=== PATIENT | female | born 1960 | race Caucasian/White ===

== ENCOUNTER 2017-02-22 10:59 | Outpatient (CLI) | payer OTHER, MEDICARE ==
[~2017-02-22] VITALS: Ht 170.2 cm; Wt 72.7 kg
--- NOTE | ~2017-02-22 | OP ---
PATIENT NAME: VIGNESH RODRIGUEZ MEDICAL RECORD: [id number] :58 LOCATION:D.CAT ADMISSION DATE: SURGEON: HOOD CARNES MD DATE OF OPERATION: 02/22/2017 PROCEDURE: Left heart catheterization, selective coronary angiography, right radial approach. CATHETERS: Radial sheath, JL3.5 AR mod catheter. The procedure was tolerated and she returned to the brown. Sheath was removed. TR band was placed. FINDINGS: Left ventriculography in 30-degree MANNING view: Normal wall motion. Normal systolic function. CORONARY ANATOMY. LEFT MAIN: Left main is free of disease. LAD: Free in the diagonal system. CIRCUMFLEX: Large circumflex system. This is a left dominant system, free of disease. RIGHT CORONARY ARTERY: Rudimentary, free of disease. IMPRESSION: Normal systolic function. Normal coronary anatomy. TRANSINT:[id number] Voice Confirmation ID: [id number] DOCUMENT ID: [id number] HOOD CARNES MD at 1337 CC: [id number] DICTATION DATE: 02/22/17 1447 [employer] MANAGER: 02/22/17 1631 DEP CLI 02/22/17 [facility] [address] [place] [address]
--- NOTE | ~2017-02-22 | HEMODYNAMI ---
PATIENT:VIGNESH RODRIGUEZ MEDICAL RECORD: [id number] : 58 LOCATION:[facility] ADMISSION DATE: 02/22/17 Generatedon:02/22/201714:43 Patient name: VIGNESH RODRIGUEZ Patient #: [id number] SSN: : 1960 Date of study: 02/22/2017 Page: Of Hemodynamic Procedure Report Patient Data Patient Demographics Procedure consent was obtained First Name: VIGNESH Gender: Female Last Name: MICHAEL : 1960 Middle Initial: KATHY Age: 56 year(s) Patient #: [id number] Race: Unknown Additional ID: [id number] Contact details [address]: [address] [place] [address] DRIVE State: [place] City: [place] Zip code: [address] Admission Admission Data Admission Date: 02/22/2017 Admission Time: 10:59 Admit Source: Other Procedure Procedure Types Cath Procedure Diagnostic Procedure LHC LHC w/Coronaries Miscellaneous Procedures Moderate Sedation up to 15 minutes Procedure Description Procedure Date Procedure Date: 02/22/2017 Procedure Start Time: 14:22 Procedure End Time: 14:41 Procedure Staff Name Function Josiah Chery RT Monitor Carl Allan RT Scrub Sean Stoner RN Nurse Andre Lunsford MD Performing Physician Procedure Data Cath Procedure Fluoroscopy Diagnostic fluoroscopy Total fluoroscopy Time: 3.8 time: 3.8 min min Diagnostic fluoroscopy Total fluoroscopy dose: 428 dose: 428 mGy mGy Contrast Material Contrast Material Type Amount (ml) Isovue 300 67 Entry Location Entry Primary Successful Side Size Upsize Upsize Entry Closure Mays ccessful Closure Location (Fr) 1 (Fr) 2 (Fr) Remarks Device Remarks Radial Right 6 Fr Mechanical artery Short Compression Estimated blood loss: 10 ml Diagnostic catheters Device Type Used For End Catheter Placement DIAGNOSTIC Fielding 110cm 5 Procedure Fr catheter ([id number]) DIAGNOSTIC AR 1 MOD 5Fr Procedure catheter ([id number]) DIAGNOSTIC JL 3.5 5Fr Procedure catheter ([id number]) Procedure Complications No complications Procedure Medications Medication Administration Route Dosage 0.9% NaCl I.V. 100 ml/hr Oxygen NC 2 l/min Heparin Flush Bag added to field 2 bags (1000units/500ml NS) Lidocaine 2% added to field 20 Radial Cocktail added to field 1 syringe (Verapomil 2mg/Nitro 400mcg/Heparin 1500units) Versed I.V. 2 mg Fentanyl I.V. 100 mcg Versed I.V. 1 mg Radial Cocktail I.A. 1 syringe (Verapomil 2mg/Nitro 400mcg/Heparin 1500units) Versed I.V. 1 mg Hemodynamics Rest Heart Rate: 71 (bpm) Pressure Samples Time Site Value (mmHg) Purpose Heart Use Rate(bpm) 14:27 LV 114/-3,3 Snapshot 93 14:27 AO 111/62(87) Pullback 93 14:34 AO 118/63(86) Snapshot 71 Gradients Valve Time Site Site 2 Mean SEP/DFP Peak To Heart Use 1 (mmHg) (sec/min) Peak Rate (mmHg) (bpm) Aortic 14:27 LV AO 93 111/62(87) Snapshots Pre Cath Intra NCS Post Cath Vital Signs Time Heart Resp SPO2 etCO2 NIBP (mmHg) Rhythm Pain Sedation Rate (ipm) (%) (mmHg) Status Level (bpm) 13:46:57 69 19 100 36.6 132/71(101) NSR 0 (11) 10(A) , No pain 13:51:40 68 23 96 37.4 131/59(97) NSR 0 (11) 10(A) , No pain 13:56:20 67 13 97 39.6 131/66(95) NSR 0 (11) 10(A) , No pain 14:01:01 62 14 97 40.4 127/63(89) NSR 0 (11) 10(A) , No pain 14:05:42 66 15 97 40.3 131/60(98) NSR 0 (11) 10(A) , No pain 14:10:22 66 16 97 32.8 129/67(95) NSR 0 (11) 10(A) , No pain 14:15:04 62 14 96 36.6 125/62(86) NSR 0 (11) 10(A) , No pain 14:19:42 59 19 94 41.1 121/60(85) NSR 0 (11) 9(A) , No pain 14:24:21 63 15 96 37.3 121/61(92) NSR 0 (11) 9(A) , No pain 14:29:02 66 14 92 26.1 111/49(78) NSR 0 (11) 9(A) , No pain 14:33:40 68 15 94 38.8 117/56(87) NSR 0 (11) 10(A) , No pain 14:38:19 69 26 95 38 126/62(89) NSR 0 (11) 9(A) , No pain Medications Time Medication Route Dose Verified Delivered Reason Notes Effectiveness by by 13:46:05 0.9% NaCl I.V. 100 Sean Sean Per ml/hr Georgiana Stoner physician RN RN 13:46:16 Oxygen NC 2 l/min Sean Sean Per Georgiana Stoner physician YUN RN 13:46:30 Heparin Flush added 2 bags Sean Sean used for Bag to Georgiana Stoner procedure (1000units/500ml field YUN MALCOLM NS) 13:46:43 Lidocaine 2% added 20ml Sean Sean for local to vial Lorigan Georgiana anesthetic field YUN MALCOLM 13:46:53 Radial Cocktail added 1 Sean Sean used for (Verapomil to syringe Lorigan Lorigan procedure 2mg/Nitro field YUN MALCOLM 400mcg/Heparin 1500units) 14:13:01 Versed I.V. 2 mg Sean Sean for sedation Georgiana Stoner RN, RN 14:13:12 Fentanyl I.V. 100 mcg Sean Sean for sedation Georgiana Stoner RN, RN 14:23:23 Versed I.V. 1 mg Sean Sean for sedation Georgiana Stoner RN RN 14:26:11 Radial Cocktail I.A. 1 Sean Andre for (Verapomil syringe Lorigan Ballico vasodilation 2mg/Nitro YUN MENDIETA 400mcg/Heparin 1500units) 14:37:22 Versed I.V. 1 mg Sean Sean for sedation Georgiana Stoner RN concrete pointer Log Time Note 13:12:28 Informed consent obtained and on chart 13:13:22 Admit Source: Other 13:13:58 Diagnostic Cath status Elective 13:14:31 Time tracking: Regular hours 13:14:35 Plan of Care:Hemodynamics will remain stable., Cardiac rhythm will remain stable., Comfort level will be maintained., Respiratory function will remain adequate., Patient/ family verbilizes understanding of procedure., Procedure tolerated without complication., Recovers from procedure without complications.. 13:22:32 H&P Date Dictated: 02/10/2017 Within 30 days and on chart., H&P Addendum completed by physician on day of procedure. (MUST COMPLETE FOR ALL OUTPATIENTS). 13:24:48 Josiah DUARTE(R) sent for patient. Start room use. 13:31:49 Patient received from Pre/Post Procedure Room to CCL 1 Alert and oriented. Tansferred to table in Supine position. 13:31:50 Warm blankets applied, and sarmad hugger turned on for patient comfort. 13:31:50 Correct patient and procedure confirmed by team. 13:31:51 ECG and BP/O2 sat monitors applied to patient. 13:31:52 Pre-procedure instructions explained to patient. 13:31:53 Pre-op teaching completed and patient verbalized understanding. 13:31:54 Family in waiting room. 13:31:57 Patient NPO since Breakfast. 13:46:05 0.9% NaCl 100 ml/hr I.V. was administered by Sean Stoner RN; Per physician; 13:46:06 Vital chart was started 13:46:07 Baseline sample Acquired. 13:46:11 Rhythm: sinus rhythm 13:46:12 Full Disclosure recording started 13:46:16 Oxygen 2 l/min NC was administered by Sean Stoner RN; Per physician; 13:46:16 Is the patient allergic to Iodine/contrast media? No. 13:46:19 Is patient on blood thinner?No 13:46:29 Patient diabetic? No. 13:46:30 Heparin Flush Bag (1000units/500ml NS) 2 bags added to field was administered by Sean Stoner RN; used for procedure; 13:46:32 Patient not . Patient is over age 55. 13:46:34 Previous problem with sedation/anesthesia? No ? 13:46:35 Snore? Yes 13:46:37 Sleep apnea? Yes 13:46:38 Deviated septum? No 13:46:39 Opens mouth fully? Yes 13:46:40 Sticks out tongue? Yes 13:46:42 Airway obstruction? No ? 13:46:43 Lidocaine 2% 20ml vial added to field was administered by Sean Stoner RN; for local anesthetic; 13:46:43 Dentures? No ? 13:46:46 Pre procedure: right dorsailis pedis pulse 1+ Palpable, but thready & weak; easily obliterated 13:46:49 Modified Vinicio's test Ulnar < 7 seconds 13:46:50 Patient pain scale 0/10 ?. 13:46:53 Radial Cocktail (Verapomil 2mg/Nitro 400mcg/Heparin 1500units) 1 syringe added to field was administered by Sean Stoner RN; used for procedure; 13:46:55 IV patent on arrival in left forearm with 0.9% NaCl at [facility]. 13:46:57 Lab results completed and on chart. 13:46:59 Right Radial & Right Groin area was prepped with chlora-prep and draped in sterile fashion 13:47:01 Alarms reviewed by R. N. 13:47:02 Sharps counted by scrub and verified by R.N. 13:47:09 Use device set Radial Dx or PCI 13:47:14 Tegaderm 4 x 4 (1626W) opened to sterile field. 13:47:15 ACIST Manifold (04108) opened to sterile field. 13:47:16 ACIST Hand Control (07594) opened to sterile field. 13:47:17 ACIST Syringe (47784) opened to sterile field. 13:47:17 Medline Cath Pack ([id number]) opened to sterile field. 13:47:18 Bag Decanter (2001S) opened to sterile field. 13:47:18 SHEATH 6FR Slender ([id number]) opened to sterile field. 13:47:19 DIAGNOSTIC WIRE .035 260cm J wire (603213) opened to sterile field. 13:47:19 MBrace Wrist Support ([id number]) opened to sterile field. 14:02:43 Case delayed due to Physician working in 3. 14:10:55 --------ALL STOP TIME OUT------ 14:10:57 Final Timeout: patient, procedure, and site verified with staff and physician. All members of the team are in agreement. 14:11:01 Right Radial & Right Groin site verified by team. 14:11:04 Physical assessment completed. ASA score P 2 - A patient with mild systemic disease as per Andre Lunsford MD. 14:11:45 Sedation plan: IV Moderate Sedation Medication:Versed, Fentanyl 14:13:01 Versed 2 mg I.V. was administered by Sean Stoner RN; for sedation; 14:13:12 Fentanyl 100 mcg I.V. was administered by Sean Stoner RN; for sedation; 14:13:17 Zero performed for pressure channel P1 14:22:05 Procedure started. 14:22:12 Local anesthetic to right radial artery with Lidocaine 2% by Andre Lunsford MD.INITIAL ACCESS ONLY 14:23:23 Versed 1 mg I.V. was administered by Sean Stoner RN; for sedation; 14:26:11 Radial Cocktail (Verapomil 2mg/Nitro 400mcg/Heparin 1500units) 1 syringe I.A. was administered by Andre Lunsford MD; for vasodilation; 14:26:18 A 6 Fr Short sheath was inserted into the Right Radial artery 14:26:37 A DIAGNOSTIC Fielding 110cm 5 Fr catheter (270599) was advanced over the wire and used for Procedure. 14:27:38 LV angiography performed. 14:27:40 LV gram done using MANNING 14:27:46 EF : 55 % 14:27:55 LV hemodynamics recorded. 14:27:59 Injector settings: Ml/sec: 7, Volume: 15, 14:29:51 Catheter exchanged over wire. 14:30:18 A DIAGNOSTIC AR 1 MOD 5Fr catheter ([id number]) was advanced over the wire and used for Procedure. 14:31:33 RCA angiography performed. 14:32:40 Catheter exchanged over wire. 14:33:40 A DIAGNOSTIC JL 3.5 5Fr catheter ([id number]) was advanced over the wire and used for Procedure. 14:35:20 LCA angiography performed. 14:35:32 Catheter removed. 14:35:41 TR BAND Standard ([id number]) opened to sterile field. 14:36:26 Sheath removed intact; hemostasis achieved with Mechanical Compression to the Right Radial artery. 14:36:29 Procedure ended.(Physican Out) 14:37:22 Versed 1 mg I.V. was administered by Sean Stoner RN; for sedation; 14:37:45 Fluoroscopy time 03.80 minutes. 14:37:51 Fluoroscopy dose: 428 mGy 14:37:51 Flurop Dose total: 428 14:38:54 Contrast amount:Isovue 300 67ml. 14:39:06 Sharps counted by scrub and verified by R.N. 14:39:10 TR band inflated with 12cc of air. 14:39:11 Insertion/operative site no bleeding no hematoma. 14:39:15 Post Procedure Pulses reassessed and unchanged 14:39:18 Post-procedure physical assessment completed. ASA score P 2 - A patient with mild systemic disease as per Andre Lunsford MD. 14:39:21 Post procedure rhythm: unchanged. 14:39:24 Estimated blood loss: 10 ml 14:39:30 Post procedure instruction explained to patient.Patient verbalizes understanding. 14:39:30 Patient needs reinforcement of post procedure teaching. 14:40:31 Procedure type changed to Cath procedure, Diagnostic procedure, LHC, LHC w/Coronaries, Miscellaneous Procedures, Moderate Sedation up to 15 minutes 14:40:33 Procedure and supply charges have been captured, reviewed, submitted and are correct. 14:40:36 Procedure Complication : No complications 14:41:18 See physician's report for complete and final results. 14:41:18 Vital chart was stopped 14:41:20 Report given to Pre/Post Procedure Room. 14:41:23 Patient transfered to Pre/Post Procedure Room with Stretcher. 14:41:26 Procedure ended. 14:41:26 Full Disclosure recording stopped 14:41:39 End room use (Document Last) Device Usage Item Name Manufacture Quantity Catalog Hospital Part Current Minima l Lot# / Number Charge Number Stock Stock Serial# Code Tegaderm 4 x 3M 1 1626W 338231 298056 113367 5 4 (1626W) ACIST Acist 1 45071 415475 367701 063056 5 Manifold Medical (50387) Systems Inc ACIST Hand Acist 1 26735 355837 000891 693334 5 Control Medical (45565) Systems Inc ACIST Acist 1 67278 424470 130699 084159 20 Syringe Medical (01866) Systems Inc Medline Cath Cardinal 1 [id number] 097686 42547 800073 5 Pack Campanisto ([id number]) Bag Decanter Microtek 1 528168 98876 408694 5 (2002S) Medical Inc. SHEATH 6FR Terumo 1 [id number] 244888 687066 262046 40 Slender ([id number]) DIAGNOSTIC [facility] [place] 1 193108 724110 857859 981893 30 WIRE .035 260cm J wire (305683) MBrace Wrist Advanced 1 140-0250-00 838821 09115 970287 5 Support Vascular ([id number]) Dynamics DIAGNOSTIC Terumo 1 40-5013 610721 383694 064733 5 Fielding 110cm 5 Fr catheter (895042) DIAGNOSTIC Cardinal 1 [id number] 237737 217824 899604 15 AR 1 MOD 5Fr Health catheter (081660C) DIAGNOSTIC Cardinal 1 [id number] 783031 437014 657090 5 JL 3.5 5Fr Health catheter (002508G) TR BAND Terumo 1 [id number] 758110 100407 413740 40 Standard ([id number]) Signature Audit [place] Stage Time Signature Unsigned Intra-Procedure 02/22/2017 Josiah Chery 2:43:22 PM RT(R) Signatures Monitor : Josiah Chery RT Signature : Date : Time : [address] [address]
[2017-02-22] MEDS ORDERED: LYRICA150 MG PO (11:23)
[2017-02-22] MEDS ORDERED: PAMELOR75 MG PO (11:23)
[2017-02-22] MEDS ORDERED: ESTRACE2 MG PO (11:24)
[2017-02-22] MEDS ORDERED: ZEBETA5 MG (11:24)
[2017-02-22] MEDS ORDERED: TRIAMTERENE-HCT1 TA1 PO (11:25)
[2017-02-22] MEDS ORDERED: LINZESS290 MCG PO (11:25)
[2017-02-22] MEDS ORDERED: BONTRIL SLOW-R105 MG PO (11:26)
[2017-02-22] MEDS ORDERED: OMEPRAZOLE20 M1 PO (11:26)
[2017-02-22] MEDS ORDERED: CLARITIN 10 MG10 MG PO (11:26)
[2017-02-22] MEDS ORDERED: ECOTRIN325 MG PO (11:26)
[2017-02-22] MEDS ORDERED: OMEGA-3100 MG PO (11:27)
[2017-02-22] MEDS ORDERED: CO Q-10100 MG PO (11:27)
[2017-02-22] MEDS ORDERED: MELATONIN 3 MG1 TAB PO (11:28)
[2017-02-22] MEDS ORDERED: VITAMIN B-122500 MCG PO (11:28)
[2017-02-22 11:30] VITALS: BP 133/62; Ht 170.2 cm; Wt 72.7 kg
[2017-02-22 11:44] LABS: BASOPHILS 0.9 % (0-2); EOSINOPHILS 3.5 % (0-7); HEMOGLOBIN 14.1 g/dL (12-16); LYMPHOCYTES 39.6 % (15-50); MCH 30.5 pg (26.0-34.0); MCHC 33.6 g/dL (31.0-37.0); MCV 90.9 fL (80.0-100.0); MEAN PLATELET VOLUME 9.6 fL (7.4-10.4); MONOCYTES 8.8 % (2-11); NEUTROPHILS 47.2 % (40-80); PLATELET COUNT 222 10x3/uL (130-400); RBC 4.62 10x6/uL (4.00-5.40); RDW 12.2 % (11.5-14.5); WBC 5.4 10x3/uL (4.8-10.8)
[2017-02-22 11:55] LABS: ANION GAP 12.1 mmol/L (8-16); CALCIUM 9.3 mg/dL (8.5-10.1); CARBON DIOXIDE 26.7 mmol/L (21.0-32.0); POTASSIUM - SERUM 3.8 mmol/L (3.5-5.1)
== END 2017-02-22 17:12 | disposition home or self-care (01) ==
LOC: D.CATH 10:59
PROVIDERS: Internal Medicine Interventional Cardiology
DX: I20.9 Angina pectoris, unspecified (principal); I10 Essential (primary) hypertension; I49.9 Cardiac arrhythmia, unspecified; E78.5 Hyperlipidemia, unspecified; Z01.812 Encounter for preprocedural laboratory examination

== ENCOUNTER → 2018-06-14 09:15 | Outpatient (CLI) | payer OTHER, MEDICARE ==
[2017-02-22 11:30] VITALS: BMI 25.1
[~2018-06-14 09:15] MED LIST: BONTRIL SLOW-R105 MG PO; CLARITIN 10 MG10 MG PO; CO Q-10100 MG PO; ECOTRIN325 MG PO; ESTRACE2 MG PO; LINZESS290 MCG PO; LYRICA150 MG PO; MELATONIN 3 MG1 TAB PO; OMEGA-3100 MG PO; OMEPRAZOLE20 M1 PO; PAMELOR75 MG PO; TRIAMTERENE-HCT1 TA1 PO; VITAMIN B-122500 MCG PO; ZEBETA5 MG
--- NOTE | 2018-06-18 13:02 | EC ---
PATIENT:VIGNESH RODRIGUEZ DATE OF SERVICE: 06/14/18 SEX: F MEDICAL RECORD: [id number] DATE OF : 58 [facility] AGE OF PATIENT: 57 ADMISSION DATE: 06/14/18 REFERRING PHYSICIAN: INTERPRETING PHYSICIAN: HOOD CARNES MD ECHOCARDIOGRAM REPORT ECHO CHARGES 4 ECHO COMPLETE Date: 06/14/18 CLINICAL DIAGNOSIS: PALPITATIONS/PVC'S/CP H/O HTN ECHOCARDIOGRAPHIC MEASUREMENTS (adult normal given) AC root (d.<3.7cm) 2.9 cm LV Septum d (<1.2 cm> 1.0 cm Valve Excursion 1.9 cm LV Septum (systole) 1.8 cm Left Atria (s.<4.0cm> 3.1 cm LVPW d(<1.2cm) 1.1 cm RV (d.<2.3cm) 2.1 cm LVPW (sytole) 1.8 cm LV diastole(<5.6CM) 4.5 cm MV E-F(>70mm/sec) cm LV systole 2.2 cm LVOT Diameter 1.8 cm MV exc.(>10mm) cm Est.ejection fraction (50-75%) % DOPPLER: LVIT cm/sec A 61.0 cm/sec E 35.0 cm/sec LA cm/sec RVSP 20.2 mmHg LVOT 128 cm/sec AOP1/2T m/s Asc. Ao 117 cm/sec RVOT 79.0 cm/sec RA cm/sec PA 90.0 cm/sec AV Gradient Peak 5.5 mmHg AV Mean 2.7 mmHg AV Area 2.9 cm MV Gradient Peak 3.0 mmHg MV Mean 0.98 mmHg MV Area cm COMMENTS: OP - HC Nursing Education Consultant: 1 DAYANA ROHITH Bulkhead Carpenter: 3 Dr. Lunsford TAPE# PACS Pericardial Effusion N DATE OF SERVICE: Adequate 2D, color flow, spectral Doppler, and M-Mode. No LVH. LV internal dimension is normal. Wall motion is normal. EF is greater than or equal to 55%. Aortic valve is tricuspid. No evidence of stenosis on Doppler interrogation. Left atrium is normal. Mitral valve shows no prolapse. Trace MR. Right-sided chambers grossly normal. Trace TR. TRANSINT:[id number] Voice Confirmation ID: [id number] DOCUMENT ID: [id number] ECHOCARDIOGRAM REPORT [id number] VIGNESH RODRIGUEZ,HOOD Dumont MD at 1302 CC: [id number] DICTATION DATE: 06/15/18839 GLOVE PARTS INSPECTOR: 06/15/18 1108 DEP CLI 06/14/18 [place] [id number] [place] [id number]
== END | disposition home or self-care (01) ==
LOC: D.HCCARDIO 09:15
PROVIDERS: ATTEND Internal Medicine Interventional Cardiology
DX: R00.2 Palpitations (principal)

== ENCOUNTER → 2019-07-03 09:48 | Outpatient (CLI) | payer OTHER, MEDICARE ==
[2017-02-22 11:30] VITALS: BMI 25.1
--- NOTE | 2019-07-04 10:33 | EC ---
PATIENT:VIGNESH RODRIGUEZ DATE OF SERVICE: 07/03/19 SEX: F MEDICAL RECORD: [id number] DATE OF : 58 [facility]GE [facility]: 58 ADMISSION DATE: 07/03/19 REFERRING PHYSICIAN: INTERPRETING PHYSICIAN: HOOD CARNES MD ECHOCARDIOGRAM REPORT ECHO CHARGES 4 ECHO COMPLETE Date: 07/03/19 CLINICAL DIAGNOSIS: HTN, MITRAL AND TRICUSPID REGURG ECHOCARDIOGRAPHIC MEASUREMENTS (adult normal given) AC root (d.<3.7cm) 2.9 cm LV Septum d (<1.2 cm> 1.3 cm Valve Excursion 1.7 cm LV Septum (systole) 1.4 cm Left Atria (s.<4.0cm> 3.0 cm LVPW d(<1.2cm) 1.2 cm RV (d.<2.3cm) 3.3 cm LVPW (sytole) 1.4 cm LV diastole(<5.6CM) 4.8 cm MV E-F(>70mm/sec) cm LV systole 3.4 cm LVOT Diameter 1.7 cm MV exc.(>10mm) 1.6 cm Est.ejection fraction (50-75%) % DOPPLER: LVIT cm/sec A 73.0 cm/sec E 56.0 cm/sec LA cm/sec RVSP 20 mmHg LVOT 100 cm/sec AOP1/2T m/s Asc. Ao 120 cm/sec RVOT 117 cm/sec RA cm/sec PA 120 cm/sec AV Gradient Peak 5.79 mmHg AV Mean 3.12 mmHg AV Area 2.4 cm MV Gradient Peak 2.96 mmHg MV Mean 0.85 mmHg MV Area cm COMMENTS: Java Application Engineer: 2 WILMER SOSA Auto Polisher: 3 Dr. Lunsford TAPE# PACS Pericardial Effusion N DATE OF SERVICE: 07/03/2019 Adequate 2D, color flow imaging, spectral Doppler, and M-Mode. Borderline LVH. LV internal dimension is normal. Wall motion is normal. EF is greater than or equal to 55%. Aortic valve is tricuspid. No evidence of stenosis by Doppler interrogation. Left atrium is normal at 3.0 cm. Mitral valve shows no prolapse. Trace MR. Right-sided chambers are grossly normal. Trace TR. ECHOCARDIOGRAM REPORT [id number] VIGNESH RODRIGUEZ TRANSINT:[id number] Voice Confirmation ID: [id number] DOCUMENT ID: [id number] HOOD CARNES MD at 1033 CC: [id number] DICTATION DATE: 07/04/19824 ACID CHANGER: 07/04/19 1006 [facility] CLI 07/03/19 [place] [id number] [place] [id number]
== END | disposition home or self-care (01) ==
LOC: D.HCCECHO 09:48
PROVIDERS: ATTEND Internal Medicine Interventional Cardiology
DX: I10 Essential (primary) hypertension (principal)